=== PATIENT | female | born 1970 | race Caucasian/White ===

== ENCOUNTER → 2020-07-10 | Outpatient (CLI) | payer OTHER ==
[~2020-07-10] MED LIST: BENTYL 10MG CAP10 MG PO; KEFLEX CAP 500500 MG PO; ZOFRAN ODT 4 MG4 MG PO
== END ==
LOC: LAB 12:22
DX: R76.0 Raised antibody titer (principal); M25.50 Pain in unspecified joint; D89.89 Other specified disorders involving the immune mechanism, not elsewhere classified
CPT/HCPCS: 36415; 83520

== ENCOUNTER 2021-11-03 23:13 | Emergency (ER) | payer OTHER ==
[2021-11-03 23:53] LABS: HEMOGLOBIN 14.9 gm/dl (12.3-15.3); RED BLOOD COUNT 4.48 M/UL (4.00-5.10); WHITE BLOOD COUNT 12.3 K/UL (4.5-11.0)
== END 2021-11-04 01:38 | disposition home or self-care (01) ==
LOC: ER1 23:13
PROVIDERS: Student in an Organized Health Care Education/Training Program
DX: R07.9 Chest pain, unspecified (principal); R06.02 Shortness of breath; R00.0 Tachycardia, unspecified; T40.715A Adverse effect of cannabis, initial encounter; F12.90 Cannabis use, unspecified, uncomplicated
CPT/HCPCS: 80053; 85025; 93005; 96374; 99283; J1200